=== PATIENT | male | born 1960 | race Caucasian/White ===

== ENCOUNTER → 2019-06-05 20:11 | Outpatient (CLI) | payer OTHER, SELFPAY ==
--- NOTE | 2019-06-05 20:19 | DI.RAD.S_ITS ---
PROCEDURE: XR CHEST 2V INDICATIONS: chronic cough TECHNIQUE: 2 views of the chest were acquired. COMPARISON: [facility], , CHEST 1 VIEW, 08/03/2015, 10:23. FINDINGS: Surgical changes and devices: None. Lungs and pleura: Lungs appear clear. No consolidative opacity. Increased prominence pulmonary markings, unchanged. No pleural effusions or pneumothorax. Mediastinum: Mediastinal contours are normal. Heart size is enlarged. Bones and chest wall: No suspicious bony abnormalities. Soft tissues appear unremarkable. IMPRESSION: No acute cardiopulmonary abnormality. Mild prominence of the pulmonary markings, unchanged. This could be due to emphysematous change or interstitial lung disease. If clinically indicated high resolution chest CT may be helpful for further evaluation. Dictated by: Colt Gomez M.D. on 06/05/2019 at 20:38 Approved by: Colt Gomez M.D. on 06/05/2019 at 20:41
== END ==
PROVIDERS: PCP Family Medicine; Referring Provider Physician Assistant; Visit Provider Physician Assistant
DX: R05 Cough (principal)
CPT/HCPCS: 71046

== ENCOUNTER → 2020-01-08 15:56 | Outpatient (ROUT) | payer OTHER, SELFPAY ==
[2020-01-08 16:06] LABS: Add Manual Diff / Slide Review NO; Basophils Absolute Auto 0 /uL (0-100); Eosinophils Absolute Auto 200 /uL (0-450); Eosinophils Percent Auto 3.6 % (2-4); Hematocrit 45.6 % (41-53); Hemoglobin 15.1 g/dL (13.5-17.5); Lymphocytes Absolute Auto 1900 /uL (1100-4500); Lymphocytes Percent Auto 39.3 % (25-40); Mean Corpuscular HGB Conc 33.1 % (30-36); Mean Corpuscular Hemoglobin 29.4 PG (26-34); Mean Corpuscular Volume 88.8 fL (80-100); Monocytes Absolute Auto 600 /uL (0-900); Monocytes Percent Auto 12.1 % (3-14); Neutrophils Absolute Auto 2200 /uL (1500-7000); Platelet Count 176 X10^3/uL (150-400); Red Blood Cell Count 5.14 X10^6/uL (4.5-5.9); Red Cell Distribution Width 13.8 % (11.6-14.8)
[2020-01-08 16:21] LABS: Alanine Aminotransferase 30 IU/L (<50); Albumin 4.1 g/dL (3.5-5.0); Albumin Globulin Ratio 1.6 (1.0-2.8); Alkaline Phosphatase 81 U/L (38-126); Aspartate Aminotransferase 32 IU/L (17-59); Bilirubin Total 0.6 mg/dL (0.2-1.3); Blood Urea Nitrogen 16 mg/dL (9-20); Calcium 9.2 mg/dL (8.4-10.2); Carbon Dioxide 26 mmol/L (22-32); Chloride 105 mmol/L (98-107); Cholesterol 173 mg/dL (140-199); Estimated Glomerular Filt Rate > 60.0 mL/min (>60); Globulin 2.5 g/dL (1.7-4.1); Glucose 98 mg/dL (70-100); HDL Cholesterol 38 mg/dL (40-60); HEMOLYSIS < 15 (0-50); LDL Cholesterol Calculated 100 mg/dL (<100); Potassium 4.7 mmol/L (3.4-5.1); Sodium 137 mmol/L (137-145); Total Protein 6.6 g/dL (6.3-8.2); Triglycerides 173 mg/dL (35-150)
[2020-01-08 16:52] LABS: Prostate Specific Antigen 2.36 ng/mL (0.10-4.00)
== END ==
PROVIDERS: PCP Family Medicine; Visit Provider Internal Medicine
DX: J47.9 Bronchiectasis, uncomplicated (principal); Z00.01 Encounter for general adult medical examination with abnormal findings; E78.2 Mixed hyperlipidemia
CPT/HCPCS: 80053; 80061; 84153; 85025

== ENCOUNTER → 2020-01-24 15:34 | Outpatient (CLI) | payer OTHER, SELFPAY ==
[2020-01-24 16:58] LABS: COVID19 -Nasal RAPID Negative (Negative)
== END ==
PROVIDERS: PCP Family Medicine; Visit Provider Physician Assistant
DX: Z11.59 Encounter for screening for other viral diseases (principal)
CPT/HCPCS: 87635

== ENCOUNTER → 2020-01-27 15:02 | Outpatient (CLI) | payer OTHER, SELFPAY ==
--- NOTE | 2020-01-27 15:05 | DI.NM.S_ITS ---
PROCEDURE: NM EXERCISE TREADMILL NON NUC COMPARISON: None. INDICATIONS: Other chest pain FINDINGS: patient exercised for 10 minutes and 1 second reaching 12.8 METs, WAYLON -7%., and 123% of maximum predicted heart rate. Mild hypertension at rest (BP 138/96mmHg) and borderline hypertensive response to exercise (BP 200/100mmHg). No angina during the study. No ST changes during the study. IMPRESSION: Low risk, normal treadmill ECG only stress test. Target heart rate achieved. Mild hypertension at rest (BP 138/96mmHg) and borderline hypertensive response to exercise (BP 200/100mmHg). No angina and no ischemic changes on the ECG. Dictated by: Amelie Arriaza MD on 01/27/2020 at 17:17 Approved by: Amelie Arriaza MD on 01/27/2020 at 17:20
== END ==
PROVIDERS: PCP Family Medicine; Referring Provider Internal Medicine; Visit Provider Internal Medicine
DX: R07.89 Other chest pain (principal)
CPT/HCPCS: 93017